=== PATIENT | female | born 1980 | race Caucasian/White ===

== ENCOUNTER 2021-08-08 09:53 | Observation (INO) | payer OTHER ==
[~2021-08-08] VITALS: Ht 172.7 cm; Wt 82.4 kg
[2021-08-08] MEDS ORDERED: CLAR10CA3 PO (10:15)
[2021-08-08] MEDS ORDERED: methylPREDNISolone 125MG 2ML VIAL IV ONE (11:00)
[2021-08-08] MEDS ORDERED: NS 1,000 ML IV ONE (11:00)
[2021-08-08] MEDS ORDERED: KETOROLAC 30 MG/ML 1ML VIAL IV ONE (11:05)
[2021-08-08] MEDS ORDERED: AMPICILLIN SOD/SULBACTAM SOD 3 GM in D5W MINI-BAG PLUS 100 ML IV ONE (11:05)
[2021-08-08 11:32] LABS: BASO % 0.2 % (0.0-1.0); EOS # 0.1 10^3/uL (0.0-0.5); HEMATOCRIT 42.5 % (36.0-47.0); HEMOGLOBIN 14.6 g/dl (12.0-15.5); LYMPH # 1.5 10^3/uL (1.5-5.0); LYMPH % 12.4 % (24.0-44.0); MEAN CORPUSCULAR HEMOGLOBIN 31.5 pg (27.0-33.0); MEAN CORPUSCULAR HGB CONC 34.4 g/dl (32.0-36.5); MEAN CORPUSCULAR VOLUME 91.8 fl (80.0-96.0); MONO % 8.2 % (2.0-8.0); NEUTROPHILS # 9.5 10^3/uL (1.5-8.5); NEUTROPHILS % 77.9 % (36.0-66.0); PLATELET COUNT, AUTOMATED 233 10^3/uL (150-450); RED BLOOD COUNT 4.63 10^6/uL (4.00-5.40); WHITE BLOOD COUNT 12.2 10^3/uL (4.0-10.0)
[2021-08-08 11:57] LABS: ALBUMIN 4.2 GM/DL (3.2-5.2); BILIRUBIN,DIRECT 0.2 MG/DL (0.0-0.2); BILIRUBIN,TOTAL 0.7 MG/DL (0.2-1.0); C REACTIVE PROTEIN QUANTITATIV 5.12 MG/DL (0.00-0.30); TOTAL PROTEIN 8.2 GM/DL (6.4-8.2)
[2021-08-08] MEDS ORDERED: LevoFLOXacin IV 500 MG in IV 1 EA IV ONE (14:00)
[2021-08-08 14:17] LABS: RSV AMPLIFICATION NEGATIVE (NEGATIVE)
[2021-08-08] MEDS ORDERED: CIPROFLOXACIN 400 MG in IV 1 EA IV ONE (15:00)
[2021-08-08] MEDS ORDERED: IBUPROFEN 400MG TAB PO PRN (15:30)
[2021-08-08 16:03] VITALS: BP 184/112
[2021-08-08] MEDS: ACETAMINOPHEN TAB 650MG DOSE (2X325MG) PO PRN ×2 (16:29→22:59)
[2021-08-08] MEDS ORDERED: amLODIPine 5 MG TAB PO ONE (16:35)
[2021-08-08 18:00] VITALS: BP 124/80
[2021-08-08] MEDS: KETOROLAC 30 MG/ML 1ML VIAL IV PRN (18:13)
[2021-08-08 20:00] VITALS: BP 118/60
[2021-08-08] MEDS ORDERED: MULTCHW12 PO (20:54)
[2021-08-08] MEDS ORDERED: IBUP-1764 PO (20:54)
[2021-08-08] MEDS ORDERED: CETI10TA4 PO (20:54)
[2021-08-08] MEDS ORDERED: FLON1SPR (20:54)
[2021-08-08] MEDS ORDERED: CIPR7.5D5 AU (20:54)
[2021-08-08] MEDS ORDERED: AMOX875T2 PO (20:54)
[2021-08-08] MEDS ORDERED: HOME MED LIST COMPLETE! XX SCH (20:55)
[2021-08-08] MEDS: CIPROFLOXACIN HC OTIC SUSPENSION AS SCH (22:58)
[2021-08-09 04:00] VITALS: BP 131/81
[2021-08-09] MEDS: KETOROLAC 30 MG/ML 1ML VIAL IV PRN (04:15)
[2021-08-09] MEDS ORDERED: LevoFLOXacin 500 MG TABLET PO SCH (06:00)
[2021-08-09 06:03] LABS: HEMATOCRIT 37.9 % (36.0-47.0); MEAN CORPUSCULAR HEMOGLOBIN 31.4 pg (27.0-33.0); MEAN CORPUSCULAR HGB CONC 34.3 g/dl (32.0-36.5); MEAN CORPUSCULAR VOLUME 91.5 fl (80.0-96.0); PLATELET COUNT, AUTOMATED 232 10^3/uL (150-450); RED BLOOD COUNT 4.14 10^6/uL (4.00-5.40); WHITE BLOOD COUNT 13.5 10^3/uL (4.0-10.0)
[2021-08-09 06:34] LABS: BLOOD UREA NITROGEN 9 MG/DL (7-18); CALCIUM LEVEL 8.5 MG/DL (8.5-10.1); CARBON DIOXIDE LEVEL 25 MEQ/L (21-32); CHLORIDE LEVEL 109 MEQ/L (98-107); CREATININE FOR GFR 0.65 MG/DL (0.55-1.30); GLOMERULAR FILTRATION RATE > 60.0 (>58); GLUCOSE, FASTING 120 MG/DL (70-100); MAGNESIUM LEVEL 2.3 MG/DL (1.8-2.4); POTASSIUM SERUM 3.8 MEQ/L (3.5-5.1); SODIUM LEVEL 139 MEQ/L (136-145)
[2021-08-09] MEDS ORDERED: CIPROFLOXACIN 500MG TABLET PO SCH (09:00)
[2021-08-09] MEDS: ACETAMINOPHEN TAB 650MG DOSE (2X325MG) PO PRN (09:21)
[2021-08-09] MEDS: CIPROFLOXACIN HC OTIC SUSPENSION AS SCH (09:21)
[2021-08-09] MEDS ORDERED: CIPR7.5D5 AU (10:28)
[2021-08-09] MEDS ORDERED: CIPR-249 PO (10:28)
== END 2021-08-09 12:20 | disposition home or self-care (01) ==
LOC: EDBD 09:53 → M ED 09:53 → M ED INP 13:27 → ENRESERV 14:51 → M 4MAIN 15:55
PROVIDERS: ADMIT Family Medicine; ATTEND Family Medicine
DX: U07.1 COVID-19 (principal); H60.92 Unspecified otitis externa, left ear; H66.92 Otitis media, unspecified, left ear; R03.0 Elevated blood-pressure reading, without diagnosis of hypertension; Z79.899 Other long term (current) drug therapy; Z79.2 Long term (current) use of antibiotics
CPT/HCPCS: 36415; 70486; 80047; 80048; 80076; 83605; 83690; 83735; 85025; 85027; 86140; 87040; 87631; 96361; 96374; 96375; 96376; 99284; J0744; J1885; J2930